=== PATIENT | female | born 1995 | race Hispanic/Latino ===

== ENCOUNTER 2023-07-06 15:22 | Day surgery (SDC) | payer OTHER ==
[2023-07-06] MEDS ORDERED: hydrALAZINE 20 MG/ML VIAL SLOW IVP PRN (16:02)
[2023-07-06 16:23] VITALS: BMI 25.7
== END 2023-07-06 20:12 | disposition home or self-care (01) ==
LOC: CSHLD/OP 15:22
PROVIDERS: ATTEND Family Medicine
DX: O36.8130 Decreased fetal movements, third trimester, not applicable or unspecified (principal); O09.33 Supervision of pregnancy with insufficient antenatal care, third trimester; Z79.899 Other long term (current) drug therapy; Z3A.39 39 weeks gestation of pregnancy
CPT/HCPCS: 76815; 76819

== ENCOUNTER 2023-07-09 19:00 | Inpatient (IN) | payer MEDICAID, OTHER ==
[2023-07-09] MEDS ORDERED: hydrALAZINE 20 MG/ML VIAL SLOW IVP PRN (20:21)
[2023-07-09] MEDS ORDERED: Ibuprofen 800 MG TAB PO PRN (20:21)
[2023-07-09] MEDS ORDERED: Ondansetron PF 4 MG/2 ML Vial IVP PRN (20:21)
[2023-07-09] MEDS ORDERED: Lidocaine 1% (PF) 30 ML VIAL SC PRN (20:21)
[2023-07-09] MEDS ORDERED: Promethazine HCl 25 MG/ML VIAL IM PRN (20:21)
[2023-07-09 20:24] VITALS: BMI 25.7
[2023-07-09] MEDS ORDERED: Oxytocin 30 units/NS 500 ML 500 ML IV SCH (20:30)
[2023-07-09 20:44] LABS: Hematocrit 32.2 % (34.9-44.5); Hemoglobin 10.7 g/dL (12.0-15.5); Mean Corpuscular HGB CONC 33.2 g/dL (32.0-36.0); Mean Corpuscular Hemoglobin 29.8 pg (27.0-33.0); Mean Corpuscular Volume 89.7 fl (81.6-98.3); Mean Platelet Volume 11.2 fl (7.4-10.4); Platelet Count 352 10x3/uL (150-450); RBC Distribution Width 14.3 % (11.5-14.5); Red Blood Cell (RBC) Count 3.59 10x6/uL (3.90-5.03); White Blood Cell (WBC) Count 11.5 10x3/uL (3.5-10.5)
[2023-07-09] MEDS ORDERED: Misoprostol 100 MCG TAB VAG SCH (20:45)
[2023-07-09] MEDS ORDERED: Misoprostol 100 MCG TAB ONE (20:45)
[2023-07-09 21:22] LABS: Syphilis Antibody Nonreactive (Nonreactive); Syphilis Antibody Index 0.03 S/CO (<1.00 Non-Reactive)
[2023-07-09 21:23] LABS: HBSAg Index 0.18 S/CO (0-0.99); Hep B Surf Ag - L&D Non-Reactive S/CO (NonReactive)
[2023-07-09] MEDS ORDERED: Carboprost 250 MCG/ML AMP IM PRN (21:24)
[2023-07-09] MEDS ORDERED: Misoprostol 200 MCG TAB PR PRN (21:24)
[2023-07-09] MEDS ORDERED: Tranexamic Acid 1,000 MG/10 ML VIAL IVP PRN (21:24)
[2023-07-09] MEDS ORDERED: Methylergonovine 0.2 MG/ML VIAL IM PRN (21:24)
[2023-07-10] MEDS: Lactated Ringer's 1,000 ML IV SCH ×2 (00:16→04:30)
[2023-07-10] MEDS: Misoprostol 100 MCG TAB VAG SCH ×2 (01:15→04:30)
[2023-07-10] MEDS ORDERED: Lactated Ringer's 500 ML IV SCH (06:30)
[2023-07-10] MEDS ORDERED: PROPOFOL 0 ML ONE (10:05)
[2023-07-10] MEDS ORDERED: Lidocaine 1% PF 5 ML VIAL ONE (10:05)
[2023-07-10] MEDS ORDERED: Ondansetron PF 4 MG/2 ML Vial ONE (10:05)
[2023-07-10] MEDS ORDERED: Oxytocin 10 UNITS/ML VIAL ONE (10:05)
[2023-07-10] MEDS ORDERED: Dexamethasone 4 mg/ml Vial ONE (10:05)
[2023-07-10] MEDS ORDERED: Succinylcholine 200 MG/10 ml SYRINGE FS ONE (10:05)
[2023-07-10] MEDS ORDERED: fentaNYL/Ropivacaine Epidural 100 ML ONE (14:11)
[2023-07-10] MEDS ORDERED: diphenhydrAMINE 50 MG/ML VIAL IVP PRN (14:38)
[2023-07-10] MEDS ORDERED: Moisturizing Cream (Eucerin) 113 GM JAR TOP PRN (14:38)
[2023-07-10] MEDS ORDERED: Ondansetron PF 4 MG/2 ML Vial IVP PRN ×2 (14:38→18:22)
[2023-07-10] MEDS ORDERED: Lactated Ringer's 500 ML IV PRN (14:38)
[2023-07-10] MEDS ORDERED: ePHEDrine Sulfate 50 MG/10 ML VIAL SLOW IVP PRN (14:38)
[2023-07-10] MEDS ORDERED: Promethazine HCl 25 MG/ML VIAL IM PRN (14:38)
[2023-07-10] MEDS ORDERED: Acetaminophen 325 MG TAB PO PRN (14:38)
[2023-07-10] MEDS ORDERED: Naloxone HCl 0.4 mg/ml Vial IVP PRN ×2 (14:38)
[2023-07-10] MEDS ORDERED: Communication Order-Pharmacy FS SCH (14:45)
[2023-07-10] MEDS ORDERED: fentaNYL 2 mcg/Ropivacaine 0.2% Epidural 100 ML CADD EPIDURAL SCH (14:45)
[2023-07-10] MEDS ORDERED: Boostrix 0.5 ML (Tdap) VIAL (>/=7 yrs of age) IM ONE (18:22)
[2023-07-10] MEDS ORDERED: Preparation H Ointment 28 GM TUBE PR PRN (18:22)
[2023-07-10] MEDS ORDERED: Methylergonovine 0.2 MG/ML VIAL IM PRN (18:22)
[2023-07-10] MEDS ORDERED: hydrALAZINE 20 MG/ML VIAL SLOW IVP PRN (18:22)
[2023-07-10] MEDS ORDERED: Ferrous Sulfate 325 MG TAB PO SCH ×2 (18:22→18:30)
[2023-07-10] MEDS ORDERED: Bisacodyl 10 MG SUPP PR PRN (18:22)
[2023-07-10] MEDS ORDERED: Misoprostol 200 MCG TAB VAG PRN (18:22)
[2023-07-10] MEDS ORDERED: Lanolin Ointment 7 GM TUBE TOP PRN (18:22)
[2023-07-10] MEDS ORDERED: Benzocaine-Menthol 82.5 ML CAN TOP PRN (18:22)
[2023-07-10] MEDS ORDERED: diphenhydrAMINE 25 MG CAP PO PRN (18:22)
[2023-07-10] MEDS ORDERED: Milk Of Magnesia 30 ML UDCUP PO PRN (18:22)
[2023-07-10] MEDS ORDERED: Bupivacaine 0.25% HCL 30 ML VIAL ONE (19:58)
[2023-07-10] MEDS: Ibuprofen 800 MG TAB PO SCH (22:15)
[2023-07-10] MEDS: Docusate 100 MG CAP PO SCH (22:15)
[2023-07-11] MEDS: Ibuprofen 800 MG TAB PO SCH ×2 (05:20→14:37)
[2023-07-11] MEDS ORDERED: Measles/Mumps/Rubella 10 MCG/0.5 ML VIAL SC ONE (06:47)
[2023-07-11] MEDS: Acetaminophen 325 MG TAB PO SCH ×3 (07:26→08:56)
[2023-07-11] MEDS: Docusate 100 MG CAP PO SCH (08:55)
[2023-07-11] MEDS ORDERED: Prenatal Vitamin 1 TAB PO SCH (09:00)
[2023-07-11] MEDS ORDERED: Acetaminophen 325 MG TAB PO SCH (15:00)
[2023-07-11 18:41] VITALS: BP 94/55; TEMP 98.9
== END 2023-07-11 18:40 | disposition home or self-care (01) | DRG 806 ==
LOC: CSHLD 19:10 → CSHPP 07-10 18:00
PROVIDERS: ADMIT Obstetrics & Gynecology; ATTEND Obstetrics & Gynecology
PROC: 10H07YZ Insertion of Other Device into Products of Conception, Via Natural or Artificial Opening (ICD-10-PCS; principal; 2023-07-10)
PROC: 10E0XZZ Delivery of Products of Conception, External Approach (ICD-10-PCS; 2023-07-10)
PROC: 10907ZC Drainage of Amniotic Fluid, Therapeutic from Products of Conception, Via Natural or Artificial Opening (ICD-10-PCS; 2023-07-10)
DX: O48.0 Post-term pregnancy (principal); O98.52 Other viral diseases complicating childbirth; Z37.0 Single live birth; O98.82 Other maternal infectious and parasitic diseases complicating childbirth; O36.5930 Maternal care for other known or suspected poor fetal growth, third trimester, not applicable or unspecified; Z3A.40 40 weeks gestation of pregnancy; B06.9 Rubella without complication
CPT/HCPCS: 36415; 51702; 85027; 86780; 86850; 86900; 86901; 87340; 90707; J1100; J2405; J2590; J2704; J7120; S0020